=== PATIENT | female | born 1955 | race Asian ===

== ENCOUNTER → 2019-11-10 | Outpatient (CLI) | payer MEDICARE | END | disposition home or self-care (01) | LOC: RADPV 12:25 | PROVIDERS: ATTEND Podiatrist Foot & Ankle Surgery | DX: M19.071 Primary osteoarthritis, right ankle and foot (principal); M77.31 Calcaneal spur, right foot; M25.70 Osteophyte, unspecified joint; M85.871 Other specified disorders of bone density and structure, right ankle and foot ==